=== PATIENT | female | born 2000 | race Two or more races ===

== ENCOUNTER 2025-01-01 08:25 | Outpatient (REF) | payer OTHER, SELFPAY ==
--- NOTE | ~2025-01-01 | US_ITS ---
CLINICAL HISTORY: ? PCOS US pelvis transvaginal Comparison: None Findings: Transvaginal scanning performed. The uterus is 7.6 cm in length. Normal myometrium. No endometrial lesion, 3.6 mm thickness. Right ovary 5.1 x 3.6 x 3.5 cm. 3 cm simple cyst. Left ovary 3.7 x 3.2 x 2.8 cm. 3 cm simple cyst. Normal color Doppler of both ovaries. No free fluid. IMPRESSION: There are simple ovarian cysts bilaterally. No evidence of polycystic ovaries by ultrasound. This document has been electronically signed by: Wayne Rene MD on 01/01/2025 12:58:13
== END 2025-01-01 08:26 | disposition home or self-care (01) ==
LOC: HO.UMASIMG 08:25
PROVIDERS: Visit Provider Family Medicine
DX: R10.13 Epigastric pain (principal); R19.7 Diarrhea, unspecified; E28.2 Polycystic ovarian syndrome
CPT/HCPCS: 76830; 76856

== ENCOUNTER → 2025-01-01 10:30 | Outpatient (BNV) | payer OTHER, SELFPAY | PROVIDERS: Visit Provider Radiology Vascular & Interventional Radiology | DX: N83.201 Unspecified ovarian cyst, right side (principal); N83.202 Unspecified ovarian cyst, left side | CPT/HCPCS: 76830 ==